=== PATIENT | female | born 1950 | race Caucasian/White ===

== ENCOUNTER 2017-03-22 10:14 | Emergency (ER) | payer BC ==
[~2017-03-22] VITALS: Ht 165.1 cm; Wt 72.6 kg
[~2017-03-22 10:14] MED LIST: AMLO5 PO; AMOCLA875 PO; CIPR500 PO; CRUTCH4 USE; Calcium PO; ETOD400 PO; FLUSAL115 INH; Fludrocortison0.1 MG; LEVSOD100 PO; LISI5 PO; METR500 PO; MONT10T PO; MONT5TCH PO; NEBI10 PO; NEBI5 PO; NORT25 PO; Norco 5-325 Ta1 EACH PO; OMEP20ER PO; OXYACE5T PO; Omeprazole20 M1 PO; PIRO20 PO; PROM25 PO; RXOXYACE PO; SPIHYD PO; Singulair10 MG; TRAM50 PO; VALS80 PO
[2017-03-22 11:06] LABS: BASOPHILS ABSOLUTE AUTO 0.06 K/mm3 (0.00-0.23); BASOPHILS PERCENT AUTO 1 % (0-2); EOSINOPHILS ABSOLUTE AUTO 0.25 K/mm3 (0.00-0.68); EOSINOPHILS PERCENT AUTO 2 % (0-6); Hematocrit 33.9 % (33.0-51.0); Hemoglobin 10.4 g/dL (11.5-16.0); IMMATURE GRAN ABSOLUTE AUTO 0.11 K/mm3 (0.00-0.10); IMMATURE GRAN PERCENT AUTO 1 % (0-1); LYMPHOCYTES PERCENT AUTO 17 % (21-46); MONOCYTES PERCENT AUTO 3 % (4-13); Mean Corpuscular HGB 25.1 pg (26.0-34.0); Mean Corpuscular HGB Conc 30.7 g/dL (31.5-36.5); Mean Corpuscular Volume 82 fL (80-100); Mean Platelet Volume 9.5 fL (9.1-12.4); NEUTROPHILS ABSOLUTE AUTO 9.13 K/mm3 (1.96-9.15); NEUTROPHILS PERCENT AUTO 76 % (41-73); Platelet Count 436 K/mm3 (150-400); RDW Standard Deviation 41.2 fL (35.1-46.3); Red Blood Cell Count 4.15 M/mm3 (3.80-5.20); White Blood Cell Count 12.05 K/mm3 (4.00-11.30)
[2017-03-22 11:27] LABS: Alanine Aminotransfer (ALT/SGP 11 U/L (12-78); Albumin, Blood 2.8 g/dL (3.4-5.0); Albumin/Globulin Ratio 0.7 (0.8-1.8); Alk Phos 93 U/L (50-136); Anion Gap 8 mmol/L (6-16); Aspartate Aminotrans (AST/SGOT 10 U/L (12-37); Bilirubin, Total 0.4 mg/dL (0.1-1.0); Blood Urea Nitrogen 14 mg/dL (8-24); Bun/Creatinine Ratio 14.8 (12.0-20.0); CO2, Blood 28 mmol/L (21-32); Calcium, Blood 8.3 mg/dL (8.5-10.1); Chloride, Blood 104 mmol/L (98-108); Creatinine, Blood 0.94 mg/dL (0.40-1.00); Globulin, Blood 4.2 g/dL (2.2-4.0); Glomerular Filtration Rate >60 (60-); Glucose, Blood 88 mg/dL (70-99); Potassium, Blood 4.1 mmol/L (3.5-5.5); Sodium, Blood 140 mmol/L (136-145)
[2017-03-22 14:20] LABS: Source, Urine Clean Catch
[2017-03-22 14:25] LABS: Bilirubin, Urine Neg (Neg); Blood, Urine Neg (Neg); Glucose Qualitative, Urine Neg (Neg); Ketones, Urine Neg (Neg); Leukocyte Esterase, Urine Neg (Neg); Nitrite, Urine Neg (Neg); Protein, Urine Neg (Neg); Specific Gravity, Urine 1.015 (1.003-1.022); Urobilinogen, Urine NORM (Normal); pH, Urine 6.5 (5.0-8.0)
[2017-03-22 14:31] LABS: Appearance, Urine Clear (Clear); Color, Urine Yellow (P-Yellow)
[2017-03-22] MEDS ORDERED: Flagyl500 MG PO (14:42)
[2017-03-22] MEDS ORDERED: Cipro500 MG PO (14:42)
== END 2017-03-22 15:05 | disposition home or self-care (01) ==
LOC: ER 10:14
PROVIDERS: Emergency Medicine
DX: K52.9 Noninfective gastroenteritis and colitis, unspecified (principal); R59.9 Enlarged lymph nodes, unspecified; Z88.8 Allergy status to other drugs, medicaments and biological substances; Z88.5 Allergy status to narcotic agent; Z79.899 Other long term (current) drug therapy; J45.909 Unspecified asthma, uncomplicated; Z90.710 Acquired absence of both cervix and uterus
CPT/HCPCS: 36415; 74177; 80053; 81003; 83690; 85025; 96361; 96374; 96376; 99284; J1170; J7030; Q9967

== ENCOUNTER 2017-11-04 17:05 | Emergency (ER) | payer BC ==
[~2017-11-04] VITALS: Ht 167.6 cm; Wt 72.6 kg
[~2017-11-04 17:05] MED LIST changes: +Cipro500 MG PO; +Flagyl500 MG PO
[2017-11-04] MEDS ORDERED: IRBE75 (17:38)
[2017-11-04] MEDS ORDERED: CELE200 (17:38)
[2017-11-04] MEDS ORDERED: BUTALB-ACETAMI1 EAC1 (17:38)
[2017-11-04 18:05] LABS: BASOPHILS ABSOLUTE AUTO 0.11 K/mm3 (0.00-0.23); BASOPHILS PERCENT AUTO 1 % (0-2); EOSINOPHILS ABSOLUTE AUTO 0.17 K/mm3 (0.00-0.68); EOSINOPHILS PERCENT AUTO 2 % (0-6); Hematocrit 30.7 % (33.0-51.0); Hemoglobin 9.3 g/dL (11.5-16.0); IMMATURE GRAN ABSOLUTE AUTO 0.04 K/mm3 (0.00-0.10); IMMATURE GRAN PERCENT AUTO 0 % (0-1); LYMPHOCYTES ABSOLUTE AUTO 2.55 K/mm3 (0.84-5.20); LYMPHOCYTES PERCENT AUTO 22 % (21-46); MONOCYTES ABSOLUTE AUTO 0.57 K/mm3 (0.16-1.47); MONOCYTES PERCENT AUTO 5 % (4-13); Mean Corpuscular HGB 23.6 pg (26.0-34.0); Mean Corpuscular HGB Conc 30.3 g/dL (31.5-36.5); Mean Corpuscular Volume 78 fL (80-100); Mean Platelet Volume 10.8 fL (9.1-12.4); NEUTROPHILS ABSOLUTE AUTO 7.98 K/mm3 (1.96-9.15); NEUTROPHILS PERCENT AUTO 70 % (41-73); Platelet Count 339 K/mm3 (150-400); RDW Standard Deviation 43.2 fL (35.1-46.3); Red Blood Cell Count 3.94 M/mm3 (3.80-5.20); White Blood Cell Count 11.42 K/mm3 (4.00-11.30)
[2017-11-04 18:45] LABS: Alanine Aminotransfer (ALT/SGP 16 U/L (12-78); Albumin, Blood 3.4 g/dL (3.4-5.0); Albumin/Globulin Ratio 0.9 (0.8-1.8); Alk Phos 95 U/L (50-136); Anion Gap 10 mmol/L (6-16); Aspartate Aminotrans (AST/SGOT 12 U/L (12-37); Bilirubin, Total 0.2 mg/dL (0.1-1.0); Blood Urea Nitrogen 17 mg/dL (8-24); Bun/Creatinine Ratio 18.1 (12.0-20.0); CO2, Blood 28 mmol/L (21-32); Calcium, Blood 7.9 mg/dL (8.5-10.1); Chloride, Blood 103 mmol/L (98-108); Creatinine, Blood 0.94 mg/dL (0.40-1.00); Globulin, Blood 3.8 g/dL (2.2-4.0); Glomerular Filtration Rate >60 (60-); Glucose, Blood 108 mg/dL (70-99); Potassium, Blood 3.6 mmol/L (3.5-5.5); Sodium, Blood 141 mmol/L (136-145); Total Protein, Blood 7.2 g/dL (6.4-8.2); Troponin I <0.015 ng/mL (0.000-0.040)
[2017-11-04] MEDS ORDERED: Norco 5-325 Ta1 EACH PO (18:56)
== END 2017-11-04 19:45 | disposition home or self-care (01) ==
LOC: ER 17:05
PROVIDERS: Emergency Medicine
DX: I10 Essential (primary) hypertension (principal)
CPT/HCPCS: 70450; 80053; 84484; 85025; 93005; 93010; 96374; 96375; 99284-25; J0360; J3010

== ENCOUNTER 2018-05-29 20:51 | Emergency (ER) | payer BC ==
[~2018-05-29] VITALS: Ht 165.1 cm; Wt 73.5 kg
[~2018-05-29 20:51] MED LIST changes: +BUTALB-ACETAMI1 EAC1; +CELE200; +IRBE75
[2018-05-29] MEDS ORDERED: Nortriptyline H25 MG PO (21:28)
[2018-05-29 22:02] LABS: BASOPHILS PERCENT AUTO 1 % (0-2); EOSINOPHILS ABSOLUTE AUTO 0.15 K/mm3 (0.00-0.68); EOSINOPHILS PERCENT AUTO 1 % (0-6); Hematocrit 40.5 % (33.0-51.0); IMMATURE GRAN ABSOLUTE AUTO 0.13 K/mm3 (0.00-0.10); IMMATURE GRAN PERCENT AUTO 1 % (0-1); LYMPHOCYTES ABSOLUTE AUTO 2.31 K/mm3 (0.84-5.20); LYMPHOCYTES PERCENT AUTO 13 % (21-46); MONOCYTES ABSOLUTE AUTO 0.84 K/mm3 (0.16-1.47); MONOCYTES PERCENT AUTO 5 % (4-13); Mean Corpuscular HGB 27.8 pg (26.0-34.0); Mean Corpuscular HGB Conc 32.1 g/dL (31.5-36.5); Mean Corpuscular Volume 87 fL (80-100); Mean Platelet Volume 9.6 fL (9.1-12.4); NEUTROPHILS ABSOLUTE AUTO 14.06 K/mm3 (1.96-9.15); NEUTROPHILS PERCENT AUTO 80 % (41-73); Platelet Count 338 K/mm3 (150-400); RDW Standard Deviation 54.3 fL (35.1-46.3); Red Blood Cell Count 4.67 M/mm3 (3.80-5.20); White Blood Cell Count 17.59 K/mm3 (4.00-11.30)
[2018-05-29 22:21] LABS: Alanine Aminotransfer (ALT/SGP 11 U/L (12-78); Albumin, Blood 3.6 g/dL (3.4-5.0); Albumin/Globulin Ratio 0.9 (0.8-1.8); Alk Phos 93 U/L (50-136); Anion Gap 6 mmol/L (6-16); Aspartate Aminotrans (AST/SGOT 11 U/L (12-37); Bilirubin, Total 0.2 mg/dL (0.1-1.0); Blood Urea Nitrogen 20 mg/dL (8-24); Bun/Creatinine Ratio 22.1 (12.0-20.0); CO2, Blood 28 mmol/L (21-32); Calcium, Blood 8.7 mg/dL (8.5-10.1); Chloride, Blood 102 mmol/L (98-108); Glomerular Filtration Rate >60 (60-); Glucose, Blood 105 mg/dL (70-99); Sodium, Blood 136 mmol/L (136-145); Total Protein, Blood 7.6 g/dL (6.4-8.2)
[2018-05-29 23:32] LABS: Source, Urine Clean Catch
[2018-05-29 23:34] LABS: Bilirubin, Urine Neg (Neg); Blood, Urine 5+ (Neg); Glucose Qualitative, Urine Neg (Neg); Ketones, Urine Neg (Neg); Leukocyte Esterase, Urine 3+ (Neg); Nitrite, Urine Neg (Neg); Protein, Urine 3+ (Neg); Urobilinogen, Urine NORM (Normal)
[2018-05-29 23:38] LABS: Appearance, Urine Hazy (Clear); Color, Urine Yellow (P-Yellow)
[2018-05-29 23:39] LABS: White Blood Cells, Urine TNTC /hpf (0-5)
[2018-05-29 23:40] LABS: Bacteria Many /hpf; Mucus Light (0-Heavy); Squamous Epithelial Cells Not Seen /hpf (Few)
[2018-05-29] MEDS ORDERED: Cipro500 MG PO (23:48)
== END 2018-05-30 00:05 | disposition home or self-care (01) ==
LOC: ER 20:51
PROVIDERS: Physician Assistant
DX: N10 Acute pyelonephritis (principal); N13.2 Hydronephrosis with renal and ureteral calculous obstruction; J45.909 Unspecified asthma, uncomplicated; I10 Essential (primary) hypertension; Z88.8 Allergy status to other drugs, medicaments and biological substances; Z79.899 Other long term (current) drug therapy
CPT/HCPCS: 36415; 74176; 80053; 81001; 83690; 85025; 87077; 87086; 87186; 96374; 99284-25; J1170; J7030

== ENCOUNTER → 2018-07-24 | Outpatient (CLI) | payer BC ==
[~2018-07-24] MED LIST changes: +Nortriptyline H25 MG PO
== END | disposition home or self-care (01) ==
LOC: LAB EV 13:35 → LAB SHORT 13:35
DX: N39.0 Urinary tract infection, site not specified (principal)
CPT/HCPCS: 87077; 87086; 87186

== ENCOUNTER 2018-09-16 20:23 | Inpatient (IN) | payer BC ==
[~2018-09-16] VITALS: Ht 165.1 cm; Wt 74.8 kg
[~2018-09-16 20:23] MED LIST changes: -BUTALB-ACETAMI1 EAC1; +BUTALB-ACETAMI1 EAC1 PO; -CELE200; +CELE200 PO; -Singulair10 MG; +Singulair10 MG PO
[2018-09-16 22:01] LABS: BASOPHILS ABSOLUTE AUTO 0.06 K/mm3 (0.00-0.23); BASOPHILS PERCENT AUTO 0 % (0-2); EOSINOPHILS ABSOLUTE AUTO 0.14 K/mm3 (0.00-0.68); EOSINOPHILS PERCENT AUTO 1 % (0-6); Hematocrit 37.6 % (33.0-51.0); Hemoglobin 11.9 g/dL (11.5-16.0); IMMATURE GRAN ABSOLUTE AUTO 0.06 K/mm3 (0.00-0.10); IMMATURE GRAN PERCENT AUTO 0 % (0-1); LYMPHOCYTES ABSOLUTE AUTO 1.99 K/mm3 (0.84-5.20); LYMPHOCYTES PERCENT AUTO 13 % (21-46); MONOCYTES ABSOLUTE AUTO 0.75 K/mm3 (0.16-1.47); MONOCYTES PERCENT AUTO 5 % (4-13); Mean Corpuscular HGB Conc 31.6 g/dL (31.5-36.5); Mean Corpuscular Volume 92 fL (80-100); Mean Platelet Volume 9.7 fL (9.1-12.4); NEUTROPHILS ABSOLUTE AUTO 12.85 K/mm3 (1.96-9.15); NEUTROPHILS PERCENT AUTO 81 % (41-73); Platelet Count 296 K/mm3 (150-400); RDW Coefficient Variation 11.8 % (11.7-14.2); RDW Standard Deviation 39.4 fL (35.1-46.3); Red Blood Cell Count 4.11 M/mm3 (3.80-5.20); White Blood Cell Count 15.85 K/mm3 (4.00-11.30)
[2018-09-16 22:19] LABS: Alanine Aminotransfer (ALT/SGP 11 U/L (12-78); Albumin, Blood 3.3 g/dL (3.4-5.0); Albumin/Globulin Ratio 0.9 (0.8-1.8); Alk Phos 82 U/L (50-136); Anion Gap 1 mmol/L (6-16); Aspartate Aminotrans (AST/SGOT 9 U/L (12-37); Bilirubin, Total 0.7 mg/dL (0.1-1.0); Blood Urea Nitrogen 12 mg/dL (8-24); Bun/Creatinine Ratio 13.1 (12.0-20.0); CO2, Blood 32 mmol/L (21-32); Calcium, Blood 8.3 mg/dL (8.5-10.1); Chloride, Blood 103 mmol/L (98-108); Creatinine, Blood 0.91 mg/dL (0.40-1.00); Globulin, Blood 3.8 g/dL (2.2-4.0); Glomerular Filtration Rate >60 (60-); Glucose, Blood 102 mg/dL (70-99); Potassium, Blood 4.2 mmol/L (3.5-5.5); Sodium, Blood 136 mmol/L (136-145); Total Protein, Blood 7.1 g/dL (6.4-8.2)
[2018-09-16 23:08] LABS: Source, Urine Clean Catch
[2018-09-16 23:19] LABS: Bilirubin, Urine Neg (Neg); Blood, Urine Neg (Neg); Glucose Qualitative, Urine Neg (Neg); Ketones, Urine Neg (Neg); Leukocyte Esterase, Urine 1+ (Neg); Nitrite, Urine Neg (Neg); Protein, Urine Neg (Neg); Specific Gravity, Urine 1.005 (1.003-1.022); Urobilinogen, Urine NORM (Normal)
[2018-09-16 23:24] LABS: Appearance, Urine Clear (Clear); Color, Urine Yellow (P-Yellow)
[2018-09-16 23:34] LABS: Bacteria Not Seen /hpf; Red Blood Cells, Urine Not Seen /hpf (0-2); Squamous Epithelial Cells Not Seen /hpf (Few); White Blood Cells, Urine Rare /hpf (0-5)
[2018-09-17 05:05] LABS: Hematocrit 36.7 % (33.0-51.0); Hemoglobin 11.6 g/dL (11.5-16.0); Mean Corpuscular HGB 28.6 pg (26.0-34.0); Mean Corpuscular HGB Conc 31.6 g/dL (31.5-36.5); Mean Corpuscular Volume 91 fL (80-100); Platelet Count 264 K/mm3 (150-400); RDW Coefficient Variation 11.9 % (11.7-14.2); RDW Standard Deviation 39.4 fL (35.1-46.3); Red Blood Cell Count 4.05 M/mm3 (3.80-5.20); White Blood Cell Count 10.33 K/mm3 (4.00-11.30)
[2018-09-17 05:33] LABS: Alanine Aminotransfer (ALT/SGP 177 U/L (12-78); Albumin/Globulin Ratio 0.9 (0.8-1.8); Alk Phos 119 U/L (50-136); Anion Gap 4 mmol/L (6-16); Aspartate Aminotrans (AST/SGOT 358 U/L (12-37); Bilirubin, Total 1.3 mg/dL (0.1-1.0); Blood Urea Nitrogen 10 mg/dL (8-24); Bun/Creatinine Ratio 11.1 (12.0-20.0); CO2, Blood 31 mmol/L (21-32); Chloride, Blood 103 mmol/L (98-108); Globulin, Blood 3.5 g/dL (2.2-4.0); Glomerular Filtration Rate >60 (60-); Glucose, Blood 103 mg/dL (70-99); Potassium, Blood 4.2 mmol/L (3.5-5.5); Sodium, Blood 138 mmol/L (136-145); Total Protein, Blood 6.5 g/dL (6.4-8.2)
--- NOTE | 2018-09-17 08:39 | NUR ---
SUMMARY PT ADMITTED DURING NIGHT FOR MICRO PERF. IF FLUIDS INFUSING. ANTIBIOTIC ORDERS WERE CHANGED PER DR PRIOR TO ARRIVAL ON THIS UNIT. I HUNG ANTIBIOTIC AFTER FIRST DOSE RECIEVED PER PHARM. PT RECEIVING SUBLIMAZE FOR PAIN. DRIFITNG TO SLEEP AFTER.
--- NOTE | 2018-09-17 17:54 | NUR ---
BP MEDICATION PT REPORTS THAT SHE TAKES BYSTOLIC AT HOME. SINCE THE PHARMACY DOES NOT CARRY THAT MEDICATION IT WAS SUBSTITUTED WITH COREG. THE PT REPORTS SHE TOOK A SUBSTITUTTED MEDICATION ON A PREVIOUS ADMIT AND THAT MEDICATION DID NOT MANAGE HER BP. ORDER RECEIVED FROM DR. AMBROSIO FOR PT TO BRING BYSTOLIC FROM HOME.
--- NOTE | 2018-09-17 18:17 | NUR ---
SHIFT SUMMARY PAIN HAS BEEN MANAGED WITH IV FENTANYL THIS SHIFT. PT IS INDEPENDENT IN THE ROOM. DR. TURNER CONSULTED ON PT TODAY. VSS. WILL MONITOR UNTIL REPORT TO ONCOMING RN.
[2018-09-18 06:03] LABS: BASOPHILS ABSOLUTE AUTO 0.07 K/mm3 (0.00-0.23); BASOPHILS PERCENT AUTO 1 % (0-2); EOSINOPHILS ABSOLUTE AUTO 0.09 K/mm3 (0.00-0.68); EOSINOPHILS PERCENT AUTO 1 % (0-6); Hematocrit 35.3 % (33.0-51.0); Hemoglobin 11.3 g/dL (11.5-16.0); IMMATURE GRAN ABSOLUTE AUTO 0.04 K/mm3 (0.00-0.10); IMMATURE GRAN PERCENT AUTO 0 % (0-1); LYMPHOCYTES ABSOLUTE AUTO 1.08 K/mm3 (0.84-5.20); LYMPHOCYTES PERCENT AUTO 9 % (21-46); MONOCYTES ABSOLUTE AUTO 0.48 K/mm3 (0.16-1.47); MONOCYTES PERCENT AUTO 4 % (4-13); Mean Corpuscular HGB 29.2 pg (26.0-34.0); Mean Corpuscular Volume 91 fL (80-100); Mean Platelet Volume 9.6 fL (9.1-12.4); NEUTROPHILS ABSOLUTE AUTO 9.94 K/mm3 (1.96-9.15); NEUTROPHILS PERCENT AUTO 85 % (41-73); Platelet Count 245 K/mm3 (150-400); RDW Coefficient Variation 11.6 % (11.7-14.2); RDW Standard Deviation 38.9 fL (35.1-46.3); Red Blood Cell Count 3.87 M/mm3 (3.80-5.20)
[2018-09-18 06:26] LABS: Alanine Aminotransfer (ALT/SGP 113 U/L (12-78); Albumin, Blood 2.8 g/dL (3.4-5.0); Albumin/Globulin Ratio 0.7 (0.8-1.8); Alk Phos 104 U/L (50-136); Anion Gap 9 mmol/L (6-16); Aspartate Aminotrans (AST/SGOT 69 U/L (12-37); Bilirubin, Total 0.8 mg/dL (0.1-1.0); Blood Urea Nitrogen 7 mg/dL (8-24); Bun/Creatinine Ratio 8.5 (12.0-20.0); CO2, Blood 25 mmol/L (21-32); Chloride, Blood 106 mmol/L (98-108); Creatinine, Blood 0.82 mg/dL (0.40-1.00); Globulin, Blood 3.8 g/dL (2.2-4.0); Glomerular Filtration Rate >60 (60-); Glucose, Blood 90 mg/dL (70-99); Potassium, Blood 4.1 mmol/L (3.5-5.5); Sodium, Blood 140 mmol/L (136-145); Total Protein, Blood 6.6 g/dL (6.4-8.2)
--- NOTE | 2018-09-18 07:58 | NUR ---
SUMMARY PT REQUIRED IV DOSE OF SUBLIMAZE FOR PAIN THIS SHIFT.AMBULATORY FOR BRP WITH REPORTED FEELING OF NOT FULLY EMPTYING BLADDER.PVR LESS THAN 300. DAY RN AGREES TO FOLLOW UP TODAY.
--- NOTE | 2018-09-18 13:14 | NUR ---
DISCHARGE ORDER DR. TURNER NOTIFIED THAT DR. SINHA PLANNED ON DISCHARGE FOR TODAY. DR. TURNER OK WITH THAT PLAN. PT WILL NEED TO FOLLOW-UP WITH HIM IN 1 MONTH AND WILL NEED A FOLLOW-UP CT SCAN IN 1 WEEK IF HER SYMPTOMS WORSEN.
[2018-09-18] MEDS ORDERED: Anti-Diarrheal2 MG PO (13:25)
[2018-09-18] MEDS ORDERED: ONDA4ODT PO (13:26)
[2018-09-18] MEDS ORDERED: Augmentin 875-1 EACH PO (13:27)
[2018-09-18] MEDS ORDERED: Florastor250 MG PO (13:28)
--- NOTE | 2018-09-18 14:09 | NUR ---
DISCHARGE INSTRUCTIONS PT PROVIDED WITH WRITTEN AND VERBAL DISCHARGE INSTRUCTIONS. SHE REPORTED UNDERSTANDING INSTRUCTIONS AFTER QUESTIONS WERE ANSWERED. PT EDUCATED TO CALL THE DOCTOR IF SYMPTOMS RETURN OR WORSEN. PT EDUCATED TO FOLLOW UP WITH DR. MOYER AND DR. TURNER. PT EDUCATED ABOUT MEDICATIONS AND SIDE EFFECTS. WILL MONITOR UNTIL PT DISCHARGES.
--- NOTE | 2018-09-18 14:21 | NUR ---
DISCHARGE PT DISCHARGED HOME WITH HER AT APPROXIMATELY 1413. PT LEFT PRIOR TO BLADDER SCAN FOLLOW-UP. PT DID NOT COMPLAIN OF BLADDER FULLNESS FEELING AND HAS VOIDED WELL T/O THE DAY.
== END 2018-09-18 14:13 | disposition home or self-care (01) | DRG 392 ==
LOC: ER 20:23 → SURS 09-17 00:17
PROVIDERS: Emergency Medicine; Internal Medicine Gastroenterology; ADMIT Internal Medicine
DX: K57.20 Diverticulitis of large intestine with perforation and abscess without bleeding (principal); J45.909 Unspecified asthma, uncomplicated; I10 Essential (primary) hypertension; J42 Unspecified chronic bronchitis; E03.9 Hypothyroidism, unspecified; K21.9 Gastro-esophageal reflux disease without esophagitis; Z79.899 Other long term (current) drug therapy
CPT/HCPCS: 36415; 74177; 80053; 81001; 83605; 83690; 84145; 85025; 85027; 87086; 94640; 94760; 96361-59; 96374-59; 96375-59; 96376-59; 99285-25; J0744; J1170; J1650; J2405; J2543; J3010; J7030; J7120; Q9967

== ENCOUNTER → 2018-11-05 | Outpatient (CLI) | payer BC ==
[~2018-11-05] MED LIST changes: +Anti-Diarrheal2 MG PO; +Augmentin 875-1 EACH PO; +Florastor250 MG PO; +ONDA4ODT PO
== END | disposition home or self-care (01) ==
LOC: LAB SHORT 09:56 → LAB EV 09:56
DX: M25.532 Pain in left wrist (principal)
CPT/HCPCS: 84550

== ENCOUNTER 2018-12-16 16:11 | Inpatient (IN) | payer BC ==
[~2018-12-16] VITALS: Ht 165.1 cm; Wt 74.0 kg
[2018-12-19] MEDS ORDERED: OMEPRAZOLE20 MG PO (16:26)
[2018-12-19] MEDS ORDERED: FLUT1DIS2 INH (16:26)
--- NOTE | 2018-12-21 06:44 | NUR ---
PT ADMITTED TO [facility]. AGREES WITH PLANNED SURGERY. LUNG SOUNDS CLEAR.
--- NOTE | 2018-12-21 11:58 | NUR ---
1125-PT HAS SENSATION FROM NIPPLE LINE AND UP. NO SENSATION NIPPLE LINE AND DOWN TO MID CALF. HAS SENSATION TO FEET AND CAN MOVE FEET WELL.
--- NOTE | 2018-12-21 12:25 | NUR ---
1218-EPIDURAL NOT STARTED AT THIS TIME DUE TO BP AND ZERO PAIN.
--- NOTE | 2018-12-21 12:25 | NUR ---
PT ARRIVED TO ROOM 211 FROM PACU PT IS S/P COLECTOMY PT DENIES PAIN NO NAUSEA CL GIVEN PT LAYING FLAT NO DIZZINESS PT HAS EPIDURAL UNHOOKED FROM SOUND DESIGNER TUBING PT TO HAVE IT ATTACHED WHEN B/P IMPROVED PT HAS NUMBNESS TO KNEES AND TO THE NIPPLE LINE PT HAS ABD BINDER ABSENT BT'S PT ASKING ME TO GET HER FAMILY FOR HER
--- NOTE | 2018-12-21 14:00 | NUR ---
EPIDURAL ATTACHED PT STATED THAT THE PAIN IS GETTING WORSE NUMBESS ONLY IN THE L THIGH IMPROVED B/P ALSO PRIOR TO STARTING SAT PT UP IN THE BED TO CHECK BP PT DID WELL NO SYMPTOMATIC
--- NOTE | 2018-12-21 17:02 | NUR ---
B/P MED WILL HOLD TALKED WITH PT PT ASKED IF SHE CAN BRING IN HER BYSTOLIC WE SUBSTITUTE WITH COREG WILL ASK DR TURNER
--- NOTE | 2018-12-21 18:00 | NUR ---
DR TURNER BY TO SEE PT EATING CL DIET FAMILY AT BEDSIDE
[2018-12-22 03:55] LABS: BASOPHILS ABSOLUTE AUTO 0.04 K/mm3 (0.00-0.23); BASOPHILS PERCENT AUTO 0 % (0-2); EOSINOPHILS ABSOLUTE AUTO 0.09 K/mm3 (0.00-0.68); EOSINOPHILS PERCENT AUTO 1 % (0-6); Hematocrit 31.4 % (33.0-51.0); Hemoglobin 10.1 g/dL (11.5-16.0); IMMATURE GRAN ABSOLUTE AUTO 0.05 K/mm3 (0.00-0.10); IMMATURE GRAN PERCENT AUTO 0 % (0-1); LYMPHOCYTES ABSOLUTE AUTO 0.45 K/mm3 (0.84-5.20); LYMPHOCYTES PERCENT AUTO 3 % (21-46); MONOCYTES ABSOLUTE AUTO 0.57 K/mm3 (0.16-1.47); MONOCYTES PERCENT AUTO 3 % (4-13); Mean Corpuscular HGB 27.8 pg (26.0-34.0); Mean Corpuscular HGB Conc 32.2 g/dL (31.5-36.5); Mean Corpuscular Volume 87 fL (80-100); Mean Platelet Volume 10.3 fL (9.1-12.4); NEUTROPHILS ABSOLUTE AUTO 15.39 K/mm3 (1.96-9.15); NEUTROPHILS PERCENT AUTO 93 % (41-73); Platelet Count 243 K/mm3 (150-400); RDW Coefficient Variation 12.5 % (11.7-14.2); RDW Standard Deviation 39.7 fL (35.1-46.3); Red Blood Cell Count 3.63 M/mm3 (3.80-5.20); White Blood Cell Count 16.59 K/mm3 (4.00-11.30)
[2018-12-22 04:14] LABS: Anion Gap 8 mmol/L (6-16); Blood Urea Nitrogen 11 mg/dL (8-24); Bun/Creatinine Ratio 11.8 (12.0-20.0); CO2, Blood 26 mmol/L (21-32); Calcium, Blood 7.6 mg/dL (8.5-10.1); Chloride, Blood 102 mmol/L (98-108); Creatinine, Blood 0.93 mg/dL (0.40-1.00); Glomerular Filtration Rate >60 (60-); Glucose, Blood 131 mg/dL (70-99); Potassium, Blood 4.1 mmol/L (3.5-5.5); Sodium, Blood 136 mmol/L (136-145)
--- NOTE | 2018-12-22 05:38 | NUR ---
SHIFT SUMMARY PT A/O T/O SHIFT WITH VSS. EPIDURAL IN PLACE. PT REPORTS PRESSURE SENSATION, HOWEVER NOT ABLE TO FEEL COOL SENSATION FROM T12-L2 RLE AND T12-L5 LLE. STATES PAIN IS AT TOLERABLE LEVEL WITH USE OF POISING INSPECTOR PUMP, RATING 5/10. PT DEMONSTRATES APPRIATE USE OF BOTH PUMP AND CALL LIGHT. TOLERATING CL DIET, BUT ONLY HAD ICE DURING THE NIGHT. DENIES N/V.
--- NOTE | 2018-12-22 07:10 | NUR ---
recvd report from previous shift RN Beth/Gia. pt sleeping in room. bed in lowest position, bed rails up x 2, call lig within reach
--- NOTE | 2018-12-22 10:25 | NUR ---
sent pt's home medications to pharmacy
--- NOTE | 2018-12-22 11:55 | NUR ---
DR TURNER ROUNDING ON PT, RECVD ORDERS
--- NOTE | 2018-12-22 14:33 | NUR ---
12/22/18 1433 Isaura Iniguez VERIFICATIONS, AUDITS.
--- NOTE | 2018-12-22 15:41 | NUR ---
during repositioning pt, epidural wire disconnected from tubing. after securing epidural with gauze and tape, called dr epstein for instructions. Orders to DC epidural and call [facility] for assistance. [facility] Rn Jacqueline instructed epidural removal WNL. Notified Dr Wing, received orders for PO/IV analgesia, provided analgesia per MAR. Will continue to monitor.
--- NOTE | 2018-12-22 15:44 | NUR ---
pt repositioned to lying position on bed, provided with analgesia. VSS, reports pain at 6/10. Will reassess
--- NOTE | 2018-12-22 17:10 | NUR ---
vss, no acute changes. following epidural removal pt is regaining sensation/movment in ble, able to lift L leg, feels sensation r/t mayen catheter. catheter care performed, mayen assessed and is patent/draining yellow clear urine. pt reports pain at 6-7/10, will continue to medicate per mar to gain pain control per pt's request. pt remained a/0 x 4, pleasant/cooperative, tolerating PO intake, has been belching, BT hypoactive.
--- NOTE | 2018-12-23 17:31 | NUR ---
SUMMARY PATIENT WELL CONTROLLED WITH PO MEDS. AMBULATING IN ROOM AND [place] WITH STANDBY ASSIST. LETICIA REGULAR DIET WITHOUT NAUSEA. PASSING SMALL AMOUNTS FLATUS. PATIENT WITH 1 EPISODE OF FEELING LIGHTHEADED WHILE SITTING IN CHAIR AND THIS RESOLVED WHEN PATIENT RETURNED TO BED
--- NOTE | 2018-12-24 05:53 | NUR ---
SUMMARY PT INDEPENDANT IN ROOM AND REPOSITIONS SELF. PASSING RUST COLORED LIQ BM TONIGHT.HAS LIGHT BLOODY SPOTTING ON TOILET TISSUE WITH WIPING. VOIDING WITHOUT REPORTED DIFF.NEW IV SITE OBTAINED. PT DIFF START USUALLY REQUIRING SITE RITE.PT REQUIRED BOTH IV AND PO PAIN MEDS FOR PAIN CONTROL THIS SHIFT. SLEPT QUIETLY MUCH OF NIGHT AFTER IV OBTAINED.
--- NOTE | 2018-12-24 19:31 | NUR ---
SUMMARY: PT A/O, VSS, INDEPENDENT, NO CHANGE TODAY. REPORTED 1 BM PT PAIN SEEMS TO BE MANAGED WITH PO MEDS. PT ABLE TO AMBULATE SERVERAL TIMES IN THE [place] AND TOLERATING DIET. NO SAFETY CONCERNS, REPORT GIVEN TO BENITA DENNIS
[2018-12-25] MEDS ORDERED: HYDR1TAB94 PO (11:34)
--- NOTE | 2018-12-25 12:26 | NUR ---
DISCHARGE: PACKET PRINTED AND DISCHARGE INSTRUCTIONS GIVEN. PT GIVEN SCRIPT AND MEDICATIONS RETURNED. PT LEFT UNIT AT ABOUT 1215, WALKED OUT WITH
== END 2018-12-25 12:18 | disposition home or self-care (01) | DRG 331 ==
LOC: SURS 12-21 05:56 → PRE IP 12-21 07:30 → SURS 12-21 12:19
PROVIDERS: ADMIT Surgery
PROC: 0DBN0ZZ Excision of Sigmoid Colon, Open Approach (ICD-10-PCS; 2018-12-21)
PROC: 0DBM0ZZ Excision of Descending Colon, Open Approach (ICD-10-PCS; principal; 2018-12-21 07:30)
DX: K57.32 Diverticulitis of large intestine without perforation or abscess without bleeding (principal); I10 Essential (primary) hypertension; K21.9 Gastro-esophageal reflux disease without esophagitis; M19.90 Unspecified osteoarthritis, unspecified site; E03.9 Hypothyroidism, unspecified; F32.9 Major depressive disorder, single episode, unspecified; F41.9 Anxiety disorder, unspecified; Z88.1 Allergy status to other antibiotic agents; Z88.5 Allergy status to narcotic agent
CPT/HCPCS: 36415; 80048; 85025; 88307; 94640; 94760; A9270-GY; J1100; J1650; J1885; J2250; J2270; J2370; J2405; J2543; J2704; J3010; J7030; J7120; V2790

== ENCOUNTER → 2019-11-15 | Outpatient (CLI) | payer BC ==
[~2019-11-15] MED LIST changes: +FLUT1DIS2 INH; +HYDR1TAB94 PO; +OMEPRAZOLE20 MG PO
== END | disposition home or self-care (01) ==
LOC: LAB EV 14:40 → LAB SHORT 14:40
DX: R30.0 Dysuria (principal)
CPT/HCPCS: 87086

== ENCOUNTER → 2020-09-02 | Outpatient (CLI) | payer OTHER ==
[2020-09-02 14:03] LABS: Stool Occult Bld Immuno 1 Negative (NEGATIVE)
== END | disposition home or self-care (01) ==
LOC: LAB SHORT 10:17 → LAB 10:17
PROVIDERS: Family Medicine
DX: Z12.11 Encounter for screening for malignant neoplasm of colon (principal)
CPT/HCPCS: G0328

== ENCOUNTER → 2020-10-19 | Outpatient (CLI) | payer OTHER | LOC: LAB 14:44 → LAB SHORT 14:44 | DX: Z20.822 Contact with and (suspected) exposure to COVID-19 (principal) | CPT/HCPCS: U0003 ==

== ENCOUNTER → 2022-05-25 | Outpatient (CLI) | payer OTHER | END | disposition home or self-care (01) | LOC: LAB SHORT 15:06 → LAB 15:06 | DX: R30.0 Dysuria (principal) | CPT/HCPCS: 87077; 87086; 87186 ==

== ENCOUNTER → 2023-06-23 | Outpatient (CLI) | payer OTHER ==
[2023-06-23 11:38] LABS: BASOPHILS ABSOLUTE AUTO 0.08 K/mm3 (0.00-0.23); BASOPHILS PERCENT AUTO 1 % (0-2); EOSINOPHILS ABSOLUTE AUTO 0.25 K/mm3 (0.00-0.68); EOSINOPHILS PERCENT AUTO 3 % (0-6); Hematocrit 37.3 % (33.0-51.0); Hemoglobin 12.2 g/dL (11.5-16.0); IMMATURE GRAN ABSOLUTE AUTO 0.04 K/mm3 (0.00-0.10); IMMATURE GRAN PERCENT AUTO 0 % (0-1); LYMPHOCYTES ABSOLUTE AUTO 1.57 K/mm3 (0.84-5.20); LYMPHOCYTES PERCENT AUTO 17 % (21-46); MONOCYTES PERCENT AUTO 5 % (4-13); Mean Corpuscular HGB 28.9 pg (26.0-34.0); Mean Corpuscular HGB Conc 32.7 g/dL (31.5-36.5); Mean Corpuscular Volume 88 fL (80-100); Mean Platelet Volume 9.9 fL (9.1-12.4); NEUTROPHILS ABSOLUTE AUTO 7.09 K/mm3 (1.96-9.15); NEUTROPHILS PERCENT AUTO 75 % (41-73); Platelet Count 310 K/mm3 (150-400); RDW Coefficient Variation 12.5 % (11.7-14.2); RDW Standard Deviation 40.3 fL (35.1-46.3); Red Blood Cell Count 4.22 M/mm3 (3.80-5.20); White Blood Cell Count 9.53 K/mm3 (4.00-11.30)
[2023-06-23 11:48] LABS: Albumin, Blood 3.6 g/dL (3.4-5.0); Albumin/Globulin Ratio 0.9 (0.8-1.8); Bilirubin, Total 0.3 mg/dL (0.1-1.0); Bun/Creatinine Ratio 17.7 (12.0-20.0); Calcium, Blood 8.6 mg/dL (8.5-10.1); Creatinine, Blood 0.96 mg/dL (0.40-1.00); Globulin, Blood 3.8 g/dL (2.2-4.0); Potassium, Blood 4.3 mmol/L (3.5-5.5); Total Protein, Blood 7.4 g/dL (6.4-8.2)
== END | disposition home or self-care (01) ==
LOC: LAB SHORT 11:31 → LAB 11:31
PROVIDERS: Physician Assistant
DX: N39.0 Urinary tract infection, site not specified (principal); R39.198 Other difficulties with micturition; R31.9 Hematuria, unspecified
CPT/HCPCS: 80053; 85025; 87077; 87086; 87186

== ENCOUNTER → 2024-05-04 | Outpatient (CLI) | payer OTHER ==
[2024-05-05 18:10] LABS: Adenovirus F 40/41 Not Detected (NOT DETECT); Astrovirus Not Detected (NOT DETECT); Campylobacter Sp Not Detected (NOT DETECT); Cryptosporidium Not Detected (NOT DETECT); Cyclospora Cayetanensis Not Detected (NOT DETECT); E. Coli O157 Not Detected (NOT DETECT); Entamoeba Histolytica Not Detected (NOT DETECT); Enteroaggregative E. coli-EAEC Not Detected (NOT DETECT); Enteropathogenic E. coli-EPEC Not Detected (NOT DETECT); Enterotoxigenic E. coli-ETEC Not Detected (NOT DETECT); Giardia Lamblia Not Detected (NOT DETECT); Norovirus GI/GII Not Detected (NOT DETECT); Plesiomonas Shigelloides Not Detected (NOT DETECT); Rotavirus A Not Detected (NOT DETECT); Salmonella Sp Not Detected (NOT DETECT); Sapovirus Not Detected (NOT DETECT); Shiga Toxin-prod E. coli-STEC Not Detected (NOT DETECT); Shigella/Enteroin E. coli-EIEC Not Detected (NOT DETECT); Vibrio Cholerae Not Detected (NOT DETECT); Vibrio Sp Not Detected (NOT DETECT); Yersinia Enterocolitica Not Detected (NOT DETECT)
== END ==
LOC: LAB 12:48 → LAB SHORT 12:48
PROVIDERS: Family Medicine
DX: R19.7 Diarrhea, unspecified (principal)
CPT/HCPCS: 87507